=== PATIENT | female | born 1995 | race Two or more races ===

== ENCOUNTER → 2016-07-03 | Outpatient (REF) | payer OTHER ==
[~2016-07-03] MED LIST: AUGM875T27 PO; BACI500O8 TOP; BENA25CA2 PO; TYLE650T30 PO
== END ==
LOC: M SFHCCLAY 15:03
PROVIDERS: ATTEND Family Medicine
DX: Z01.419 Encounter for gynecological examination (general) (routine) without abnormal findings (principal); Z72.51 High risk heterosexual behavior

== ENCOUNTER → 2016-07-04 | Outpatient (REF) | payer OTHER | LOC: M SFHCCLAY 11:54 | PROVIDERS: ATTEND Family Medicine | DX: Z01.419 Encounter for gynecological examination (general) (routine) without abnormal findings (principal); R87.622 Low grade squamous intraepithelial lesion on cytologic smear of vagina (LGSIL); Z72.51 High risk heterosexual behavior ==

== ENCOUNTER → 2017-01-08 | Outpatient (REF) | payer OTHER ==
[~2017-01-08] MED LIST changes: -AUGM875T27 PO; +AUGM875T28 PO
[2017-01-08 18:39] LABS: WHITE BLOOD COUNT 7.8 K/mm3 (4.0-10.0)
[2017-01-08 18:40] LABS: BASO # 0.1 K/mm3 (0.0-0.2); BASO % 0.8 % (0.0-1.0); EOS # 0.3 K/mm3 (0.0-0.50); EOS % 3.6 % (0.0-3.0); LARGE UNSTAINED CELL # 0.2 K/mm3 (0.0-0.4); LARGE UNSTAINED CELL % 2.9 % (0.0-4.0); LYMPH # 2.8 K/mm3 (1.5-6.5); LYMPH % 32.8 % (24.0-44.0); MEAN CORPUSCULAR HEMOGLOBIN 30.6 pg (27.0-33.0); MEAN CORPUSCULAR HGB CONC 32.8 g/dl (32.0-36.5); MEAN CORPUSCULAR VOLUME 93.3 fl (80.0-96.0); MONO # 0.4 K/mm3 (0.0-0.8); NEUTROPHILS # 4.3 K/mm3 (1.8-7.7); PLATELET COUNT, AUTOMATED 206 k/mm3 (150-450); RED CELL DISTRIBUTION WIDTH 12.7 % (11.5-14.5)
[2017-01-08 19:17] LABS: ERYTHROCYTE SEDIMENTATION RATE 6 mm/hr (0-20)
[2017-01-08 19:41] LABS: FREE T4 1.17 NG/DL (0.76-1.46)
[2017-01-08 19:42] LABS: VITAMIN B12 LEVEL 473 PG/ML (247-911)
== END ==
LOC: M SFHCCLAY 10:44
PROVIDERS: ATTEND Family Medicine
DX: Z01.419 Encounter for gynecological examination (general) (routine) without abnormal findings (principal); G43.109 Migraine with aura, not intractable, without status migrainosus; Z72.51 High risk heterosexual behavior; M25.50 Pain in unspecified joint
CPT/HCPCS: 82306; 82607; 83540; 84439; 84443; 84550; 85025; 85652; 85730; 86038; 86140; 86431; 87070; 87491; 87591; G0123